=== PATIENT | male | born 1985 | race Caucasian/White ===

== ENCOUNTER 2016-09-21 21:46 | Emergency (ER) | payer OTHER ==
[~2016-09-21 21:46] MED LIST: BP MED; FLAGYL PO; FLEXERIL10 MG PO; PERCOCET 10-651 EACH PO; ULTRAM PO
== END 2016-09-21 22:45 | disposition home or self-care (01) ==
LOC: CFTX 21:46
DX: L73.9 Follicular disorder, unspecified (principal); F17.210 Nicotine dependence, cigarettes, uncomplicated; Z98.890 Other specified postprocedural states
CPT/HCPCS: 99282

== ENCOUNTER 2016-10-29 04:17 | Emergency (ER) | payer OTHER | END 2016-10-29 06:38 | disposition home or self-care (01) | LOC: CED 04:17 | DX: S61.211A Laceration without foreign body of left index finger without damage to nail, initial encounter (principal); Z23 Encounter for immunization; F17.210 Nicotine dependence, cigarettes, uncomplicated; W26.0XXA Contact with knife, initial encounter | CPT/HCPCS: 12001; 90471; 90715; 99283 ==

== ENCOUNTER 2016-12-07 19:30 | Emergency (ER) | payer OTHER | END 2016-12-09 21:51 | disposition left against medical advice (07) | LOC: CED 19:30 | DX: Z53.21 Procedure and treatment not carried out due to patient leaving prior to being seen by health care provider (principal) ==

== ENCOUNTER 2016-12-30 02:42 | Emergency (ER) | payer OTHER ==
[~2016-12-30] VITALS: Ht 180.3 cm; Wt 79.4 kg
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
== END 2016-12-30 06:32 | disposition home or self-care (01) ==
LOC: CED 02:42
DX: M25.572 Pain in left ankle and joints of left foot (principal); M79.662 Pain in left lower leg; F17.200 Nicotine dependence, unspecified, uncomplicated
CPT/HCPCS: 73610; 99283

== ENCOUNTER 2017-01-05 03:37 | Emergency (ER) | payer OTHER | END 2017-01-05 05:04 | disposition home or self-care (01) | LOC: CED 03:37 | DX: M25.572 Pain in left ankle and joints of left foot (principal); G89.29 Other chronic pain | CPT/HCPCS: 29540; 99283 ==

== ENCOUNTER 2017-01-11 20:23 | Emergency (ER) | payer OTHER | END 2017-01-11 21:57 | disposition home or self-care (01) | LOC: CFTX 20:23 → CED 20:23 → CFTX 21:48 | DX: S50.362A Insect bite (nonvenomous) of left elbow, initial encounter (principal); R60.0 Localized edema; F17.210 Nicotine dependence, cigarettes, uncomplicated; W57.XXXA Bitten or stung by nonvenomous insect and other nonvenomous arthropods, initial encounter | CPT/HCPCS: 99282 ==

== ENCOUNTER 2017-01-26 20:06 | Emergency (ER) | payer OTHER ==
[~2017-01-26] VITALS: Ht 182.9 cm; Wt 81.6 kg
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
== END 2017-01-26 21:45 | disposition home or self-care (01) ==
LOC: CED 20:06 → CFTX 20:06
DX: S80.12XA Contusion of left lower leg, initial encounter (principal); L03.116 Cellulitis of left lower limb; F17.210 Nicotine dependence, cigarettes, uncomplicated; W19.XXXA Unspecified fall, initial encounter; Y92.009 Unspecified place in unspecified non-institutional (private) residence as the place of occurrence of the external cause
CPT/HCPCS: 29540; 73590; 73610; 99283